=== PATIENT | female | born 1995 | race Caucasian/White ===

== ENCOUNTER 2021-05-30 12:05 | Emergency (ER) | payer OTHER ==
[~2021-05-30 12:05] MED LIST: BENTYL10 MG PO
[2021-05-30 13:53] LABS: CORONAVIRUS 2019 SARS-COV-2 NEGATIVE (NEGATIVE); INFLUENZA A NAA NEGATIVE (NEGATIVE)
[2021-05-30] MEDS ORDERED: ONDANSETRON ODT4 MG PO (14:56)
== END 2021-05-30 15:25 | disposition home or self-care (01) ==
LOC: FER 12:05
PROVIDERS: Nurse Practitioner Family
DX: B34.9 Viral infection, unspecified (principal); Z20.822 Contact with and (suspected) exposure to COVID-19
CPT/HCPCS: 93005; U0002